=== PATIENT | male | born 1950 | race Caucasian/White ===

== ENCOUNTER 2024-10-04 17:26 | Emergency (ER) | payer MEDICARE, OTHER ==
[~2024-10-04] VITALS: Ht 160 cm; Wt 98.0 kg
[2024-10-04] MEDS: SODIUM BICARB 8.4% 50Meq/50ml SYR Vial IV ONE (16:41)
[2024-10-04] MEDS: EPINEPHrine HCL 250 ML IV ONE (16:42)
[2024-10-04] MEDS: EPINEPHrine HCL 1 MG/10 ML SYRG ONE (16:53)
[2024-10-04] MEDS ORDERED: AMIODARONE HCL (50 MG/ ML) 3 ML VIAL IV ONE (17:27)
[2024-10-04] MEDS ORDERED: SODIUM BICARB 8.4% 50Meq/50ml SYR Vial IV ONE (17:35)
[2024-10-04] MEDS ORDERED: MIDAZOLAM DRIP 50 mg/50mL 50 ML IV SCH (17:45)
[2024-10-04] MEDS ORDERED: EPINEPHrine HCL 250 ML IV SCH (17:45)
[2024-10-04 18:03] VITALS: BP 118/92; PULSE 82; RESP 22; O2SAT 91
--- NOTE | 2024-10-04 18:09 | ED.PDOC ---
CPR-HPI HPI Comments 73 year old male brought in by EMS presents to the ED with a chief complaint cardiac arrest onset today (10/04/24). Per EMS, patient was talking to when he began experiencing dizziness, chest discomfort, shortness of breath, shortly after was unresponsive. Down time prior to EMS arrival was 5 minutes, total down time prior to ED arrival was 40 minutes, was not intubated in route. Upon ED arrival pupils were fixed and dilated, with no pulse on arrival. Lower IO in place. 5 epi, 1 bicarb, 1 calcium, Narcan was given to patient. PMHx HTN, DM, CABG 7 year ago. Chief Complaint: CPR Time Seen by MD: 17:20 Primary Care Provider: UNKNOWN Reviewed Notes: Nurses Notes, Medications, Allergies Allergies: Coded Allergies: NO KNOWN ALLERGIES (Unverified , 10/04/24) Information Source: Emergency Med Personnel Mode of Arrival: EMS Timing: Hours Comments 40 minutes Onset: At rest Inital rhythm: Asystole Treatment: CPR Associated signs and symptoms: Dyspnea, Chest Pain Past Medical History PAST MEDICAL HISTORY: DM, HTN Surgical History: CABG Family History Family History: Unknown Social History Smoker: Non-Smoker Alcohol: Denies ETOH Use Drugs: Denies Drug Use Lives In: Home Unable to Obtain due to: Medical Urgency Physical Exam General Appearance: Severe Distress HEENT: Other (Pupils fixed and dilated) Neck: NOT DONE Respiratory: Respiratory Distress, Other (Intubated) Cardiovascular: Other (No pulse) Breast Exam: Deferred Gastrointestinal: Distended Genitalia: Deferred Pelvic: Deferred Rectal: Deferred Extremities: NOT DONE Neurologic: Other (Unconscious) Cerebellar Function: NOT DONE Reflexes: NOT DONE Skin: Pallor Peripheral Pulses: 0 Radial (R), 0 Radial (L) Lymphatic: NOT DONE Was a procedure done? Was a procedure done?: Yes Sedation Sedation?: No Intubation Indication: Respiratory Insufficiency Prep: Preoxygenation Pretreated with: Analgesia Intubation Approach: Orotracheal Intubation size: cm (8) Differential Dx CPR Differential Diagnosis: Cardiopulmonary arrest, Electrolyte disorder X-Ray, Labs, Meds, VS Vital Signs Date Time Temp Pulse Resp B/P (MAP) Pulse Ox O2 Delivery O2 Flow Rate FiO2 10/04/24 18:03 82 22 118/92 (101) 91 100 Patient came in unconscious pain Had no intubation. Had to intubate the patient in the ER. CPR continued. ACLS drugs use. Patient did have a pulse for few minutes. Went back to asystole. Continuous CPR. Spoke with family. Has a strong cardiac history. Spoke with the team. Had to pronounce. Informed the family. Time of 1ST Reevaluation: 17:50 Reevaluation 1ST: Unchanged Patient Education/Counseling: Pt Unresponsive Family Education/Counseling: Other (Informed family) Departure 1 Departure Time of Disposition: 18:25 Impression: Primary Impression: Respiratory failure Qualified Codes: J96.01 - Acute respiratory failure with hypoxia Additional Impressions: Hyperglycemia Cardiac arrest Disposition: 20 Condition: Other Critical Care Note Critical Care Time?: Yes (45 min-critical care time only) Heart Score Heart Score: Heart Score Response (Comments) Value History Highly Suspicious [address]-Deviation 2 Age >65 2 Risk Factors >3 or Hx ASHD 2 Troponin N/A 0 Total 8 Stability Stability form required: No I personally scribed for JOHNY MURPHY MD ([email or web address]) on 10/04/24 at 18:09. Electronically submitted by Mee Smith ([email or web address]). I personally scribed for JOHNY MURPHY MD ([email or web address]) on 10/04/24 at 18:20. Electronically submitted by Mee Smith ([email or web address]). JOHNY MURPHY MD Oct 04, 2024 18:09
[2024-10-04] MEDS ORDERED: SODIUM CHLORIDE 0.9% 1,000 ML IV ONE ×2 (18:15)
[2024-10-04] MEDS ORDERED: DOPamine 1600MCG/ML D5W 250 ML IV SCH (18:15)
[2024-10-04] MEDS ORDERED: PIPERACILLIN-TAZOB 3.375GM 100 ML IV ONE (18:15)
[2024-10-04] MEDS ORDERED: CLINDAMYCIN 600MG IV 50 ML IV ONE (18:15)
--- NOTE | 2024-10-04 18:42 | DVH ---
CHEST RADIOGRAPH Indication: INTUBATION AND NG TUBE PLACEMENT Technique: Single frontal view of the chest was obtained Comparison: None FINDINGS: Lines and Tubes: Endotracheal tube 2.8 cm above the vicki. Enteric tube noted to the left diaphragm and most likely is in the stomach. Lungs: Patchy airspace disease is seen bilaterally may represent pulmonary edema Pleura: No effusion. No pneumothorax. Cardiomediastinal contours: Unremarkable Bones: No acute osseous abnormality. IMPRESSION: 1. Endotracheal tube 2.9 cm above the vicki. 2. Enteric tube in the stomach. 3. Patchy diffuse bilateral airspace disease
--- NOTE | 2024-10-04 19:10 | RESUS ---
CODE BLUE ASSESSSMENT History of Events History of Events: Patient arrived to ER via EMS CPR in progress. EMS reports family initiated CPR after patient began to experience sudden chest pain that lead to unresponsiveness. CPR continues by EMS upon their arrival to patient home. EMS administered a total of 5 epi, 1 calcium, 1 narcan, 1 sodium bicarb per ACLS guidelines. Approximate downtime 40min prior to ER arrival. Airway Ventilation Breathing at Onset: Assisted Oxygen Delivery Method: Ambu-Bag Artificial Ventilation: Bag/Mask Intubation Size: 8.0 cuffed Intubated by: Dr Barrett Intubation Attempts: 1 Intubated orally: Yes Tube secured at: 22 Confirmation: Auscultation, Exhaled CO2 Suctioning (Oral/Tracheal): Yes Circulation Circulation #1: Time: 17:28 Circulation Comment: asystole Circulation #2: Time: 17:30 Circulation Comment: asystole Circulation #3: Time: 17:32 Circulation Comment: asystole Circulation #4: Time: 17:34 Circulation Comment: asystole Circulation #5: Time: 17:36 Pulse Rate (adult): 106 Blood Pressure Systolic: 123 Blood Pressure Diastolic: 97 Circulation Comment: ROSC 1747 patient became bradycardic on Tele monitor/ no palpable pulse CPR resumed Circulation #6: Time: 17:49 Circulation Comment: PEA Circulation #7: Time: 17:51 Pulse Rate (adult): 82 Blood Pressure Systolic: 118 Blood Pressure Diastolic: 92 Circulation Comment: ROSC 1806 patient became bradycardic on Tele monitor/ no palpable pulse CPR resumed Circulation #8: Time: 18:08 Circulation Comment: asystole Circulation #9: Time: 18:10 Circulation Comment: asystole Circulation #10: Time: 18:12 Circulation Comment: asystole Circulation #11: Time: 18:14 Circulation Comment: asystole Circulation #12: Time: 18:16 Circulation Comment: asystole Circulation #13: Time: 18:18 Circulation Comment: asystole Procedure - Intraosseous Site of Intraosseous: Tibia brayden-medial Intraosseous inserted by: EMS Medications & Response Medications and Responses #1: Medication Time: 17:28 ADULT Medications Given ADULT: Epinephrine 1 mg, 2 Amps Na Bicarb Route of Administration: IV Medications and Responses #2: Medication Time: 17:31 ADULT Medications Given ADULT: Epinephrine 1 mg Route of Administration: IV Medications and Responses #3: Medication Time: 17:34 ADULT Medications Given ADULT: Epinephrine 1 mg, Sodium Bacarbinate 50 meq, Calcium Chloride 10 mL Route of Administration: IV Medications and Responses #4: Medication Time: 17:37 ADULT Medications Given ADULT: Epinephrine 1 mg Route of Administration: IV Medications and Responses #5: Medication Time: 17:38 ADULT Medications Given ADULT: 2 Amps Na Bicarb Route of Administration: IV Medications and Responses #6: Medication Time: 17:47 ADULT Medications Given ADULT: Epinephrine 1 mg, Sodium Bacarbinate 50 meq Route of Administration: IV Medications and Responses #7: Medication Time: 17:49 ADULT Medications Given ADULT: Epinephrine 1 mg Route of Administration: IV Medication Comment: verbal order from dr barrett to administer at the 2 min toi Medications and Responses #8: Medication Time: 17:52 ADULT Medications Given ADULT: Epinephrine 1 mg Medication Comment: verbal order to give after rosc achieved at 1750 due to intermittent bradycardia EKG Rhythm: Sinus Bradycardia Blood Pressure Systolic: 118 Blood Pressure Diastolic: 92 Medications and Responses #9: Medication Time: 18:06 ADULT Medications Given ADULT: Epinephrine 1 mg Route of Administration: IV Medications and Responses #10: Medication Time: 18:09 ADULT Medications Given ADULT: Epinephrine 1 mg Route of Administration: IV Medications and Responses #11: Medication Time: 18:12 ADULT Medications Given ADULT: Epinephrine 1 mg, Sodium Bacarbinate 50 meq Route of Administration: IV Medications and Responses #12: Medication Time: 18:15 ADULT Medications Given ADULT: Epinephrine 1 mg Procedure - Central Venous Cat Central venous catheter time: 17:35 Central venous catheter site: Rt Femoral Central Venous Catheter Insert: shania jeronimo Procedure - Tse Catheter Time: 17:30 Urinary Catheter Type/Location: Uretheral (Tse) Urine Appearance: Clear Urine Color: Yellow Tse Catheter Secured: Yes Tse Catheter Inserted by Who: JUDAH Bass Nurses Notes [place] Coma Scale Eye Opening: None (1) [place] Coma Scale Verbal: None (1) [place] Coma Scale Motor: None (1) Pupil Reaction: Non Reactive Bedside Blood Glucose: 315 Time Code Ended Time Code Ended: 18:18 Post Arrest Status: Outcome of code: Unsuccessful Patient pronounced by: Dr Barrett Time patient pronounced: 18:18 Family notified: Yes Code Team Present: Dr Krystal Oquendo RT x2 wet process technician Destiny RNHS Gaye Post Resuscitation Neurologica Pupil Size: 5 Gaye Stuart Oct 04, 2024 19:10
== END 2024-10-04 18:18 ==
LOC: ER 17:26 → EDBD 17:26 → ER 18:18
DX: I46.9 Cardiac arrest, cause unspecified (principal); J96.90 Respiratory failure, unspecified, unspecified whether with hypoxia or hypercapnia; E11.65 Type 2 diabetes mellitus with hyperglycemia; I10 Essential (primary) hypertension; Z95.1 Presence of aortocoronary bypass graft
CPT/HCPCS: 31500; 71045; 92950; 99291; J0171; J0282; J1265; J2310